=== PATIENT | female | born 1955 | race Caucasian/White ===

== ENCOUNTER → 2021-01-30 | Outpatient (CLI) | payer MEDICARE, OTHER ==
[~2021-01-30] MED LIST: AMLODIPINE BESYL5 MG PO; FAMOTIDINE40 MG PO; METOPROLOL SUCC25 MG PO; TRINTELLIX10 MG PO
[2021-01-30 09:08] LABS: BASOPHILS # (AUTO) 0.1 (0.0-0.1); EOSINOPHILS % 0.5 % (0.0-6.0); HEMATOCRIT 39.5 % (34.2-44.1); HEMOGLOBIN 11.2 g/dL (12.0-16.0); LYMPHOCYTES # (AUTO) 1.1 (1.0-3.2); LYMPHOCYTES % 13.6 % (18.0-39.1); MEAN CORPUSCULAR HGB CONC 28.4 g/dL (31-35); MEAN CORPUSCULAR VOLUME 77.8 fL (81-99); MONOCYTES # (AUTO) 0.8 (0.2-0.8); NEUTROPHILS # (AUTO) 5.8 (2.1-6.9); NEUTROPHILS % 74.4 % (38.7-80.0); PLATELET COUNT 211 x10e3/uL (140-360); RED BLOOD COUNT 5.08 x10e6/uL (3.6-5.1); RED CELL DISTRIBUTION WIDTH 20.5 % (11.7-14.4)
== END | disposition home or self-care (01) ==
LOC: LAB 13:50 → EDSTATUS 02-02 11:00
PROVIDERS: ATTEND Internal Medicine Gastroenterology
DX: Z01.812 Encounter for preprocedural laboratory examination (principal); Z20.822 Contact with and (suspected) exposure to COVID-19; R10.13 Epigastric pain; Z12.11 Encounter for screening for malignant neoplasm of colon; Z68.1 Body mass index [BMI] 19.9 or less, adult
CPT/HCPCS: 36415; 85025; U0002

== ENCOUNTER → 2021-04-27 | Day surgery (SDC) | payer MEDICARE ==
[2021-04-24 12:36] LABS: BASOPHILS # (AUTO) 0.1 (0.0-0.1); BASOPHILS % 1.1 % (0.0-1.0); EOSINOPHILS # (AUTO) 0.1 (0.0-0.4); EOSINOPHILS % 1.2 % (0.0-6.0); HEMATOCRIT 40.3 % (34.2-44.1); HEMOGLOBIN 11.6 g/dL (12.0-16.0); LYMPHOCYTES # (AUTO) 1.6 (1.0-3.2); LYMPHOCYTES % 23.8 % (18.0-39.1); MEAN CORPUSCULAR HEMOGLOBIN 22.6 pg (28-32); MEAN CORPUSCULAR HGB CONC 28.8 g/dL (31-35); MEAN CORPUSCULAR VOLUME 78.6 fL (81-99); MONOCYTES # (AUTO) 0.7 (0.2-0.8); MONOCYTES % 10.3 % (4.4-11.3); NEUTROPHILS # (AUTO) 4.2 (2.1-6.9); NEUTROPHILS % 63.1 % (38.7-80.0); PLATELET COUNT 188 x10e3/uL (140-360); RED BLOOD COUNT 5.13 x10e6/uL (3.6-5.1); RED CELL DISTRIBUTION WIDTH 20.3 % (11.7-14.4)
[~2021-04-27] MED LIST changes: +ATIVAN1 MG PO; +ESMOLOL HCL 100MG/10ML 10 MG/ML VIAL ONE; +LIDOCAINE HCL 2% LOCAL INJ 5 ML SDV VIAL INJ ONE; +PROPOFOL IV EMULSION 10 MG/ML 20 ML VIAL ONE
[2021-04-27 08:45] VITALS: BP 126/86
== END | disposition home or self-care (01) ==
LOC: OR 06:18
PROVIDERS: ATTEND Internal Medicine Gastroenterology
DX: K29.50 Unspecified chronic gastritis without bleeding (principal); K64.8 Other hemorrhoids; R63.6 Underweight; Z88.2 Allergy status to sulfonamides; K44.9 Diaphragmatic hernia without obstruction or gangrene; Z68.1 Body mass index [BMI] 19.9 or less, adult; Z86.19 Personal history of other infectious and parasitic diseases; I10 Essential (primary) hypertension; Z01.810 Encounter for preprocedural cardiovascular examination; Z01.812 Encounter for preprocedural laboratory examination
CPT/HCPCS: 36415; 43239; 43245; 45378; 85025; 93005; J2001; J2704; 43233

== ENCOUNTER → 2022-07-12 | Day surgery (SDC) | payer MEDICARE ==
[2022-07-05 14:07] LABS: BASOPHILS % 0.6 % (0.0-1.0); EOSINOPHILS # (AUTO) 0.2 (0.0-0.4); EOSINOPHILS % 3.1 % (0.0-6.0); HEMATOCRIT 48.3 % (34.2-44.1); LYMPHOCYTES # (AUTO) 2.1 (1.0-3.2); LYMPHOCYTES % 30.4 % (18.0-39.1); MEAN CORPUSCULAR HEMOGLOBIN 32.4 pg (28-32); MEAN CORPUSCULAR HGB CONC 31.1 g/dL (31-35); MEAN CORPUSCULAR VOLUME 104.3 fL (81-99); MONOCYTES # (AUTO) 0.5 (0.2-0.8); MONOCYTES % 7.3 % (4.4-11.3); NEUTROPHILS # (AUTO) 3.9 (2.1-6.9); NEUTROPHILS % 58.2 % (38.7-80.0); PLATELET COUNT 169 x10e3/uL (140-360); RED BLOOD COUNT 4.63 x10e6/uL (3.6-5.1)
[~2022-07-12] MED LIST changes: +ATORVASTATIN CA20 MG PO; +B12 PO; +CITALOPRAM HBR20 MG PO; +CLOPIDOGREL75 MG PO; +FOLIC ACID0.4 MG PO; -LIDOCAINE HCL 2% LOCAL INJ 5 ML SDV VIAL INJ ONE; -PROPOFOL IV EMULSION 10 MG/ML 20 ML VIAL ONE; +SLO-FE PO
[2022-07-12 09:30] VITALS: BP 125/76
== END | disposition home or self-care (01) ==
LOC: OR 06:09
PROVIDERS: ATTEND Internal Medicine Gastroenterology
DX: K52.9 Noninfective gastroenteritis and colitis, unspecified (principal); K29.40 Chronic atrophic gastritis without bleeding; K44.9 Diaphragmatic hernia without obstruction or gangrene; K21.9 Gastro-esophageal reflux disease without esophagitis; K64.8 Other hemorrhoids; I10 Essential (primary) hypertension; J45.909 Unspecified asthma, uncomplicated; E78.5 Hyperlipidemia, unspecified; I25.2 Old myocardial infarction; F41.9 Anxiety disorder, unspecified; F32.A Depression, unspecified; F17.200 Nicotine dependence, unspecified, uncomplicated; Z88.2 Allergy status to sulfonamides; Z01.810 Encounter for preprocedural cardiovascular examination; Z01.812 Encounter for preprocedural laboratory examination; Z79.02 Long term (current) use of antithrombotics/antiplatelets; Z79.899 Other long term (current) drug therapy; Z86.19 Personal history of other infectious and parasitic diseases
CPT/HCPCS: 36415; 43239; 45378; 45380; 85025; 88304; 88305; 88312; 88342; 93005